=== PATIENT | male | born 1980 | race Caucasian/White ===

== ENCOUNTER 2023-03-09 22:27 | Inpatient (IN) ==
--- NOTE | 2023-03-09 23:04 | DR.ABDMALE ---
HPI Time seen Time Seen by Provider: 03/09/23 23:04 PCP Primary Care Physician: RUSSELL HPI comment HPI Comment: Patient is 42yr old male in er with left lower quardrant pain times two weeks. Got worse this am. Have taken Laxitive and enema without response. History bowel obstruction in the past. Pain is 10/10 and is sharp and associated with nausea and fever. No vomiting or dysuria. Complaint Chief Complaint Doctors Comments: Left lower quardrant abdominal pain times one and half week that is worse today. Chief Complaint:: LLQ PAIN X 2 WEEKS, WORSE THIS AM. PT STATES HX BOWEL RESECTION AND THAT HE TOOK MULTIPLE LAXATIVES THIS AM WITH NO RELIEF. COVID-19 Coronavirus risk:travel/contact w/high risk person: No Has patient experienced Coronavirus symptoms: No Reviewed Nurses Notes Review: Yes Mode of arrival Mode of Arrival: Ambulatory Timing Onset of Chief Complaint: 03/09/23 Severity Severity: None PMH PMH Past Medical History: Yes Past Medical History: Hypertension and CA Past Medical History Comment: CA WITH STENTS Past Surgical History: Yes Surgical History: Angioplasty/Stents, Appendectomy and Bowel Resection Family History History of Family Medical Conditions: No Social History Alcohol Use: None Do you use any recreational Drugs:: No Lives With: Family Lives Where: Assisted Care Travel Risk Coronavirus risk:travel/contact w/high risk person: No Has patient experienced Coronavirus symptoms: No Infectious screening In the last 2 months have you had wt loss of >10#?: NO Have you had fever, night sweats or hemotysis?: No Have you traveled outside the country in the last 6 months?: No Isolation: Standard ROS Review of Systems Constitutional: Fever; negative Weakness or Fatigue Eyes: No Symptoms Reported; negative Blurred Vision ENTM: No Symptoms Reported; negative Nose Discharge or Nose Congestion Respiratoy: No Symptoms Reported; negative Moist Cough or Short of Breath Cardiovascular: No Symptoms Reported; negative Chest Pain Gastrointestinal/Abdominal: Abdominal Pain, Constipation and Nausea; negative Diarrhea or Vomiting Genitourinary: No Symptoms Reported; negative Dysuria Neurological: No Symptoms Reported; negative Headache, Weakness or Dizziness Musculoskeletal: Back Pain; negative Muscle Pain Integumentary: No Symptoms Reported; negative Rash or Juandice Hematologic/Lymphatic: No Symptoms Reported Endocrine: No Symptoms Reported Psychiatric: No Symptoms Reported All Other Systems: Reviewed and Negative PE Vital Signs Vital Signs: Temp Pulse Resp BP Pulse Ox O2 Del Method 03/10/23 01:20 18 03/10/23 00:50 18 03/09/23 22:28 99.2 F 77 18 138/93 96 Room Air General Limitations: No Limitations General Appearance: Alert and In No Apparent Distress Head Head Exam: Normal Inspection Eyes Eye exam: Normal Appearance; negative Scleral Icterus or Conjunctival Injection ENT ENT Exam: Normal Exam and Normal Oropharynx; negative Mucous Membranes Moist or TM's Normal Bilaterally Neck Neck Exam: Normal Inspection and Trachea Midline; negative Tenderness Chest Chest Inspection: Normal Inspection and Symmetric Chest Wall Rise; negative Tenderness Respiratory Respiratory Exam: Normal Lung Sounds Bilat; negative Accessory Muscle Use, Chest Wall Tenderness or Respiratory Distress Respiratory Exam: Bilateral: Rhonchi Cardiovascular Cardiovascular Exam: Regular Rate, Normal Rhythm and Normal Heart Sounds; negative Systolic Murmur or Diastolic Murmur Abdominal Exam Abdominal Exam: Normal Bowel Sounds, Soft and Tenderness Abdominal Tenderness: LLQ and Moderate Rectal Rectal Exam: Deferred Back Back Exam: Normal Inspection; negative (R) CVA Tenderness or (L) CVA Tenderness Extremeties Extremities Exam: Normal Inspection and Normal Capillary Refill Exam: Male: Deferred Neurologic Neurological Exam: Alert and Oriented X3; negative Motor Sensory Deficit Psychiatric Psychiatric Exam: Normal Affect and Normal Mood Skin Skin Exam: Intact MDM Differential Diagnosis Differential Diagnosis: Bowel Obstruction, Constipation, Diverticular disease, Gastroenteritis, Inflammatory BD and Urinary tract infection COURSE Treatment Treatment: See orders done while patient was in er. Labs and CT discussed with patient. HE was given Demerol 25mg IV, Zofran 4mg IV, Flagyl 500mg IVPB and NS one liter IV bolus while in er. he was admitted to hospital for further management. Consultation Consultation Comments: discussed patient with Dr. Alcaraz. He will admit patient. Education/Counseling Education/Counseling: Patient Educated On: Diagnosis ROR Labs Reviewed Laboratory Results Reviewed?: Yes 03/12/23 04:06 03/12/23 04:06 Laboratory: WBC 12.4 X10^3/uL (3.6-10.0) H 03/09/23 23:13 RBC 4.71 X10^6/uL (4.7-6.0) 03/09/23 23:13 Hgb 14.8 g/dL (13.5-18.0) 03/09/23 23:13 Hct 42.2 % (42.0-54.0) 03/09/23 23:13 MCV 89.6 fL (80.0-100.0) 03/09/23 23:13 MCH 31.3 pg (27.0-34.0) 03/09/23 23:13 MCHC 34.9 g/dL (33.0-35.0) 03/09/23 23:13 RDW 12.9 % (11.6-16.5) 03/09/23 23:13 Plt Count 313 X10^3/uL (150.0-450.0) 03/09/23 23:13 MPV 8.3 fL (7.4-11.0) 03/09/23 23:13 Neut % (Auto) 68.6 % (42.0-75.0) 03/09/23 23:13 Lymph % (Auto) 18.8 % (21.0-51.0) L 03/09/23 23:13 [place] % (Auto) 10.1 % (0.0-13.0) 03/09/23 23:13 Eos % (Auto) 1.7 % (0.9-2.9) 03/09/23 23:13 Baso % (Auto) 0.8 % (0.2-1.0) 03/09/23 23:13 Neut # (Auto) 8.5 x10^3/uL (2.2-4.8) H 03/09/23 23:13 Lymph # (Auto) 2.3 X10^3/uL (1.3-2.9) 03/09/23 23:13 [place] # (Auto) 1.3 x10^3/uL (0.3-0.8) H 03/09/23 23:13 Eos # (Auto) 0.2 x10^3/uL (0.0-0.2) 03/09/23 23:13 Baso # (Auto) 0.1 X10^3/uL (0.0-0.1) 03/09/23 23:13 Absolute Nucleated RBC 0.1 /100WBC 03/09/23 23:13 Sodium 139 mmol/L (136-145) 03/09/23 23:13 Corrected Sodium TNP 03/09/23 23:13 Potassium 3.7 mmol/L (3.5-5.1) 03/09/23 23:13 Chloride 102 mmol/L (98-107) 03/09/23 23:13 Carbon Dioxide 28.6 mmol/L (21-32) 03/09/23 23:13 BUN 19 mg/dL (7-18) H 03/09/23 23:13 Creatinine 1.41 mg/dL (0.70-1.30) H 03/09/23 23:13 Est GFR (MDRD) Af Amer > 60 (>60) 03/09/23 23:13 Est GFR (MDRD) Non-Af 58 (>60) L 03/09/23 23:13 Glucose 99 mg/dL (65-99) 03/09/23 23:13 Calcium 8.4 mg/dL (8.5-10.1) L 03/09/23 23:13 Corrected Calcium TNP 03/09/23 23:13 Total Bilirubin 0.50 mg/dL (0.2-1.0) 03/09/23 23:13 AST 16 Units/L (15-37) 03/09/23 23:13 ALT 34 Units/L (12-78) 03/09/23 23:13 Alkaline Phosphatase 66 Units/L (46-116) 03/09/23 23:13 Total Protein 7.1 g/dL (6.4-8.2) 03/09/23 23:13 Albumin 3.8 g/dL (3.4-5.0) 03/09/23 23:13 Globulin 3.3 g/dL (2.5-4.5) 03/09/23 23:13 Albumin/Globulin Ratio 1.2 Ratio (1.1-2.1) 03/09/23 23:13 Amylase 29 Units/L (25-115) 03/09/23 23:13 Specimen Type Clean catch urine 03/09/23 23:57 Urine Color Yellow (YELLOW) 03/09/23 23:57 Urine Appearance Clear (CLEAR) 03/09/23 23:57 Urine pH 6.0 (5.0 - 8.0) 03/09/23 23:57 Ur Specific [place] 1.015 (1.000-1.030) 03/09/23 23:57 Urine Protein Negative (NEGATIVE) 03/09/23 23:57 Urine Glucose (UA) Negative (NEGATIVE) 03/09/23 23:57 Urine Ketones Negative (NEGATIVE) 03/09/23 23:57 Urine Blood Negative (NEGATIVE) 03/09/23 23:57 Urine Nitrite Negative (NEGATIVE) 03/09/23 23:57 Urine Bilirubin Negative (NEGATIVE) 03/09/23 23:57 Urine Urobilinogen Normal (NORMAL) 03/09/23 23:57 Ur Leukocyte Esterase Negative (NEGATIVE) 03/09/23 23:57 XRAY XRAY Interpreted by: Radiologist (Report noted.) Opioid Opioid Risk Tool Age (Homero box if 16-45): Yes History of Preadolescent Sexual Abuse: No Total: 1 Total Score Risk Category: Low Risk Copyright: Julius SAMPSON predicting aberrant behaviors Discharge Plan Diagnosis Discharge Problem: Acute diverticulitis Abdominal pain Qualifiers: Abdominal location: left lower quadrant Qualified Code(s): R10.32 - Left lower quadrant pain Discharge Plan Patient Disposition: ADMITTED INPATIENT Condition: Stable
[2023-03-09 23:26] LABS: MEAN CORPUSCULAR VOLUME 89.6 fL (80.0-100.0); RED CELL DISTRIBUTION WIDTH 12.9 % (11.6-16.5)
[2023-03-09 23:33] LABS: ALANINE AMINOTRANSFERASE 34 Units/L (12-78); ALBUMIN 3.8 g/dL (3.4-5.0); ALKALINE PHOSPHATASE 66 Units/L (46-116); AMYLASE 29 Units/L (25-115); ASPARTATE AMINO TRANSFERASE 16 Units/L (15-37); BLOOD UREA NITROGEN 19 mg/dL (7-18); CALCIUM 8.4 mg/dL (8.5-10.1); CARBON DIOXIDE 28.6 mmol/L (21-32); CHLORIDE 102 mmol/L (98-107); CREATININE 1.41 mg/dL (0.70-1.30); GLUCOSE 99 mg/dL (65-99); POTASSIUM 3.7 mmol/L (3.5-5.1); SODIUM 139 mmol/L (136-145); TOTAL PROTEIN 7.1 g/dL (6.4-8.2); eGFR NON BLACK RACES 58 (>60)
[2023-03-09 23:38] LABS: BASOPHILS # (AUTO) 0.1 X10^3/uL (0.0-0.1); BASOPHILS % (AUTO) 0.8 % (0.2-1.0); EOSINOPHILS # (AUTO) 0.2 x10^3/uL (0.0-0.2); EOSINOPHILS % (AUTO) 1.7 % (0.9-2.9); HEMATOCRIT 42.2 % (42.0-54.0); HEMOGLOBIN 14.8 g/dL (13.5-18.0); LYMPHOCYTES # (AUTO) 2.3 X10^3/uL (1.3-2.9); LYMPHOCYTES % (AUTO) 18.8 % (21.0-51.0); MEAN CORPUSCULAR HEMOGLOBIN 31.3 pg (27.0-34.0); MEAN CORPUSCULAR HGB CONC 34.9 g/dL (33.0-35.0); MEAN PLATELET VOLUME 8.3 fL (7.4-11.0); MONOCYTES # (AUTO) 1.3 x10^3/uL (0.3-0.8); MONOCYTES % (AUTO) 10.1 % (0.0-13.0); NEUTROPHILS # (AUTO) 8.5 x10^3/uL (2.2-4.8); NEUTROPHILS % (AUTO) 68.6 % (42.0-75.0); PLATELET COUNT 313 X10^3/uL (150.0-450.0); RED BLOOD COUNT 4.71 X10^6/uL (4.7-6.0); WHITE BLOOD COUNT 12.4 X10^3/uL (3.6-10.0)
--- NOTE | 2023-03-09 23:51 | CT ---
HISTORYLLQ PAIN X 2 WEEKS, WORSE THIS AM. PT STATES HX BOWEL RESECTION AND THAT HE TOOK MULTIPLE LAXATIVES THIS AM WITH NO RELIEF.STUDYABDOMEN/PELVIS W/O CONCOMPARISONNone.TECHNIQUESerial axial images were obtained from the lung bases to the pubic symphysis without the administration of intravenous contrast. Soft tissue, lung windows and bone window images were interpreted. Dose reduction techniques were utilized.FINDINGSThe heart is not enlarged. There is atherosclerotic disease of the left anterior descending artery, right and left main coronary arteries the lung bases are clear.The liver is normal in size and reveals no focal lesions. There is no intrahepatic biliary ductal dilatation or obvious common bile duct dilatation. The gallbladder is unremarkable. The gallbladder reveals no radiopaque gallstones. The spleen is unremarkable, revealing no focal lesions. The pancreas and adrenal glands are unremarkable.The aorta and inferior vena cava are unremarkable. No significant para-aortic or retroperitoneal lymphadenopathy is identified.The kidneys reveal no renal, ureteric, or urinary bladder calculi. There is no hydronephrosis. There is no obstructive uropathy.Examination of the bowel, greater omentum and mesentery reveals diverticular disease of the sigmoid colon with perisigmoid all inflammatory changes seen within the pelvis extending to the left pelvic sidewall with edema seen in this area. The appendix is unremarkable with no evidence for acute appendicitis. Examination of the pelvis reveals no pathologic masses or fluid collections. There prostate gland calcifications. The urinary bladder is unremarkable. There are pelvic phleboliths. There is a left inguinal hernia with only herniation of fat through the defect.There is vacuum phenomenon within the sacroiliac joints. At L1-2 there is vacuum phenomenon with marked narrowing of the disc space.IMPRESSIONAcute diverticulitis of the sigmoid colon with perisigmoidal inflammatory changes. No perforation or abscess formation is seen at this time.Electronically signed by: Yola Medrano (Mar 09, 2023 23:50:15)
[2023-03-10 00:07] LABS: BILIRUBIN,URINE NEGATIVE (NEGATIVE); BLOOD/HEMOGLOBIN,URINE NEGATIVE (NEGATIVE); GLUCOSE, URINE NEGATIVE (NEGATIVE); KETONES,URINE NEGATIVE (NEGATIVE); LEUKOCYTE ESTERASE ,URINE NEGATIVE (NEGATIVE); NITRITES,URINE NEGATIVE (NEGATIVE); PROTEIN,URINE NEGATIVE (NEGATIVE); UROBILINOGEN,URINE NORMAL (NORMAL)
[2023-03-10 00:20] LABS: APPEARANCE,URINE CLEAR (CLEAR); COLOR,URINE YELLOW (YELLOW)
[2023-03-10] MEDS ORDERED: FLAGYL IV PREMIX 500 MG BAG 500 MG/100 ML BAG IV ONE ×2 (00:20→00:28)
[2023-03-10] MEDS ORDERED: ZOFRAN INJ 4 MG VIAL IVP ONE (00:23)
[2023-03-10] MEDS ORDERED: DEMEROL INJ IVP ONE ×2 (00:23→05:16)
[2023-03-10] MEDS ORDERED: ZOFRAN INJ 4 MG VIAL ONE (00:27)
[2023-03-10] MEDS ORDERED: DEMEROL INJ ONE ×2 (00:27→05:17)
[2023-03-10] MEDS ORDERED: NS 1,000 ML IV 1,000 ML ONE (00:27)
[2023-03-10] MEDS: NS 1,000 ML IV 1,000 ML IV SCH ×4 (00:49→16:50)
[2023-03-10] MEDS ORDERED: DEMEROL INJ IVP PRN (05:36)
[2023-03-10 06:04] VITALS: BMI 31.4
[2023-03-10] MEDS ORDERED: ASPIRIN 81 MG PO SCH (09:00)
[2023-03-10] MEDS ORDERED: COREG TAB 25 MG PO SCH (09:00)
[2023-03-10] MEDS: COZAAR PO SCH (09:28)
[2023-03-10] MEDS: LIPITOR TAB 80 MG PO SCH (09:28)
[2023-03-10] MEDS: PLAVIX PO SCH (09:28)
[2023-03-10] MEDS: ASPIRIN EC 81 MG PO SCH (09:28)
[2023-03-10] MEDS: FLAGYL IV PREMIX 500 MG BAG 500 MG/100 ML BAG IV SCH ×3 (09:29→21:53)
[2023-03-10] MEDS: CIPRO IV 400 MG PREMIX* 400 MG/200 ML IV.SOLN. IV SCH ×2 (09:29→21:09)
[2023-03-10] MEDS: DILAUDID INJ IVP PRN ×4 (11:07→23:25)
--- NOTE | 2023-03-10 13:31 | DR.H&P ---
H&P - History & Physical for Day of: H&P Date: 03/10/23 - Chief Complaint Chief Complaint: ABDOMINAL PAIN - History of Present Illness History of Present Illness: IS A 42 YEAR OLD WHITE MALE. HE PRESENTED TO THE ER WITH COMPLAINTS OF LEFT LOWER QUADRANTS PAIN. PAIN STARTED ABOUT TWO WEEKS AGO AND HAS PROGRESSIVELY GOTTEN WORSE. HE ADMITS TO TAKING A LAXATIVE AND ENEMA WITHOUT RESPONSE. HE ADMITS TO A HISTORY OF BOWEL OBSTRUCTION IN THE PAST, WHICH REQUIRED A BOWEL RESECTION. HE ADMITS TO NAUSEA AND FEVER, BUT NO VOMITING OR DYSURIA. HE DESCRIBES PAIN SHARP AND RATES IT A 10/10. PMH INCLUDES HTN, OK, CAD, DYSLIPIDEMIA, CARDIAC STENTS, APPENDECTOMY, BOWEL RESECTION. ON ARRIVAL TO THE HOSPITAL, HIS VITALS WERE: 99.2-77-18-96%-138/93. LABS WERE OBTAINED. WBC 12.4, RBC 4.71, HGB 14.8, HCT 42.2, PLT COUNT 313, SODIUM 139, POTASSIUM 3.7, CHLORIDE 102, CARBON DIOXIDE 28.6, BUN 19, CREATININE 1.41, GLUCOSE 99, CALCIUM 8.4, TOTAL BILI 0.50, AST 16, ALT 34, ALK PHOS 66, TOTAL PROTEIN 7.1, ALBUMIN 3.8. URINALYSIS WAS OBTAINED AND WAS UNREMARKABLE. ABDOMEN/PELVIS CT WITHOUT CONTRAST WAS OBTAINED AND REVEALED: Acute diverticulitis of the sigmoid colon with perisigmoidal inflammatory changes. No perforation or abscess formation is seen at this time. IN THE ER, HE WAS GIVEN FLAGYL 500MG IV X 1 DOSE, DEMEROL 25MG IV X 2 DOSES, ZOFRAN 4MG IV X 1 DOSE. PATIENT WAS ADMITTED TO THE HOSPTIAL INPATIENT STATUS FOR FURTHER EVALUATION AND TREATMENT OF ACUTE DIVERTICULITIS, ABDOMINAL PAIN. HE WAS STARTED ON NORMAL SALINE AT 125 ML/HR, FLAGYL 500MG IV Q6H, CIPRO 400MG IV Q12H, DILAUDID 2MG IV Q4H PRN, ZOFRAN 4MG IV Q6H. HIS HOME MEDICATIONS OF ECOTRIN, LIPITOR, PLAVIX, COZAAR, AND COREG WERE RESUMED. WE DID DECREASE THE DOSE OF THE COREG TO 12.5MG BID. WE WILL CONSULT , GENERAL SURGEON, TO EVALUATE PATIENT. OTHERWISE, WE WILL FOLLOW UP WITH AM LABS AND CONTINUE TO MONITOR. TIME SPENT ON CLINICAL ASSESSMENT, REVIEWING LABS AND IMAGING, DECISION MAKING, AND DOCUMENTATION GREATER THAN 75 MINUTES. - Past Medical History Past Medical History: OK, Hypertension - Past Surgical History Surgical History: Angioplasty/Stents, Appendectomy, Bowel Resection - Family History Family Medical History: Coronary Artery Disease, Hypertension - Social History Does any household member use tobacco: No Alcohol Use: None Drug Use: None - Review of Systems Constitutional: Fever Eyes: No Symptoms Reported ENT: No Symptoms Reported Respiratory: No Symptoms Reported Cardiovascular: No Symptoms Reported Gastrointestinal: See HPI, Nausea, Abdominal Pain. denies: Vomiting, Diarrhea, Constipation Genitourinary: No Symptoms Reported Musculoskeletal: No Symptoms Reported Skin: No Symptoms Reported Neurological: No Symptoms Reported - Physical Exam Vital Signs: Vital Signs Temperature 98.2 F Pulse Rate 71 Pulse Rate 63 Pulse Rate 73 Pulse Rate 51 Pulse Rate 47 Pulse Rate 70 Pulse Rate 58 Pulse Rate 61 Pulse Rate 57 Pulse Rate 65 Respiratory Rate 17 Respiratory Rate 18 Respiratory Rate 15 Respiratory Rate 18 Respiratory Rate 16 Respiratory Rate 14 Respiratory Rate 19 Respiratory Rate 18 Respiratory Rate 16 Respiratory Rate 18 Respiratory Rate 18 Respiratory Rate 20 Respiratory Rate 18 Respiratory Rate 20 Blood Pressure 159/88 Blood Pressure 150/96 Blood Pressure 157/95 O2 Sat by Pulse Oximetry 94 O2 Sat by Pulse Oximetry 93 O2 Sat by Pulse Oximetry 95 O2 Sat by Pulse Oximetry 95 O2 Sat by Pulse Oximetry 94 O2 Sat by Pulse Oximetry 96 O2 Sat by Pulse Oximetry 97 O2 Sat by Pulse Oximetry 95 O2 Sat by Pulse Oximetry 96 O2 Sat by Pulse Oximetry 96 Oriented: Normal Eyes: Normal Ear: Normal Nose: Normal Throat: Normal Respiratory: Clear Throughout Cardiovascular: Normal : Normal Auscultation: Bowel Sounds: Normal Palpation: Normal Tenderness: LLQ, Severe Skin: Normal Musculoskeletal: Normal Psychiatric: Normal Mood Description: Calm Affect: Normal Speech Pattern: Clear - Assessment/Plan (1) Acute diverticulitis Status: Acute Plan: ADMIT, CONSULT SURGERY, NORMAL SALINE AT 125 ML/HR, FLAGYL 500MG IV Q6H, CIPRO 400MG IV Q12H, DILAUDID 2MG IV Q4H PRN, ZOFRAN 4MG IV Q6H, RESUME HOME MEDS (2) Abdominal pain Qualifiers: Abdominal location: left lower quadrant Qualified Code(s): R10.32 - Left lower quadrant pain Status: Acute (3) HTN (hypertension) Qualifiers: Hypertension type: primary hypertension Qualified Code(s): I10 - Essential (primary) hypertension Status: Chronic Plan: RESUME COZAAR AND COREG (4) CAD (coronary artery disease) Qualifiers: Coronary Disease-Associated Artery/Lesion type: [place] artery [place] vs. transplanted heart: [place] heart Associated angina: unspecified whether angina present Qualified Code(s): I25.10 - Atherosclerotic heart disease of [place] coronary artery without angina pectoris Status: Chronic Plan: RESUME ASPIRIN AND PLAVIX (5) Dyslipidemia Status: Chronic Plan: RESUME LIPITOR - Allergies Allergies/Adverse Reactions: Allergies Allergy/AdvReac Type Severity Reaction Status Date / Time Penicillins Allergy Verified 03/09/23 22:40 Sulfa (Sulfonamide Allergy Verified 03/09/23 22:40 Antibiotics) [SULFA] - Medications Home Medications: Home Medications Medication Instructions Recorded Confirmed amlodipine 10 mg tablet 10 mg PO QDAY 03/09/23 03/09/23 aspirin 81 mg capsule,delayed 81 mg PO DAILY 03/09/23 03/09/23 release atorvastatin 80 mg tablet 80 mg PO QDAY 03/09/23 03/09/23 carvedilol 25 mg tablet (Coreg) 25 mg PO BID 03/09/23 03/09/23 clopidogrel 75 mg tablet (Plavix) 75 mg PO DAILY 03/09/23 03/09/23 hydrocodone 10 mg-acetaminophen 1 tab PO BID PRN 03/09/23 03/09/23 325 mg tablet losartan 100 mg tablet 100 mg PO DAILY 03/09/23 03/09/23
[2023-03-10 15:23] LABS: BASOPHILS % (AUTO) 0.5 % (0.2-1.0); EOSINOPHILS # (AUTO) 0.3 x10^3/uL (0.0-0.2); EOSINOPHILS % (AUTO) 3.1 % (0.9-2.9); HEMOGLOBIN 14.7 g/dL (13.5-18.0); LYMPHOCYTES # (AUTO) 2.8 X10^3/uL (1.3-2.9); LYMPHOCYTES % (AUTO) 30.4 % (21.0-51.0); MEAN CORPUSCULAR HEMOGLOBIN 30.9 pg (27.0-34.0); MEAN CORPUSCULAR HGB CONC 34.2 g/dL (33.0-35.0); MEAN CORPUSCULAR VOLUME 90.5 fL (80.0-100.0); MEAN PLATELET VOLUME 8.1 fL (7.4-11.0); MONOCYTES # (AUTO) 0.9 x10^3/uL (0.3-0.8); MONOCYTES % (AUTO) 9.9 % (0.0-13.0); NEUTROPHILS # (AUTO) 5.2 x10^3/uL (2.2-4.8); NEUTROPHILS % (AUTO) 56.1 % (42.0-75.0); PLATELET COUNT 304 X10^3/uL (150.0-450.0); RED BLOOD COUNT 4.75 X10^6/uL (4.7-6.0); RED CELL DISTRIBUTION WIDTH 12.7 % (11.6-16.5); WHITE BLOOD COUNT 9.2 X10^3/uL (3.6-10.0)
[2023-03-10 15:29] LABS: ALANINE AMINOTRANSFERASE 29 Units/L (12-78); ALBUMIN 3.5 g/dL (3.4-5.0); ALKALINE PHOSPHATASE 66 Units/L (46-116); ASPARTATE AMINO TRANSFERASE 14 Units/L (15-37); BLOOD UREA NITROGEN 12 mg/dL (7-18); CALCIUM 8.2 mg/dL (8.5-10.1); CARBON DIOXIDE 32.4 mmol/L (21-32); CHLORIDE 103 mmol/L (98-107); COR NA(FOR HYPERGLY) 140 mmol/L (136-145); CREATININE 1.34 mg/dL (0.70-1.30); GLUCOSE 112 mg/dL (65-99); POTASSIUM 3.6 mmol/L (3.5-5.1); SODIUM 140 mmol/L (136-145); TOTAL PROTEIN 6.8 g/dL (6.4-8.2); eGFR NON BLACK RACES > 60 (>60)
[2023-03-10] MEDS ORDERED: CONSULT PHARMACY - POTASSIUM & MAGNESIUM XX SCH (16:00)
[2023-03-10] MEDS: ZOFRAN INJ 4 MG VIAL IVP PRN (18:11)
[2023-03-10] MEDS: MAGNESIUM SULFATE 1 GRAM/100 mL PREMIX 1 G/100 ML BAG IV SCH ×2 (22:35→23:37)
[2023-03-11] MEDS: K-RIDER 10 MEQ/NS 100 ML 10 MEQ/100 ML BAG IV SCH ×2 (00:47→02:04)
[2023-03-11] MEDS: NS 1,000 ML IV 1,000 ML IV SCH ×3 (01:44→18:45)
[2023-03-11] MEDS: FLAGYL IV PREMIX 500 MG BAG 500 MG/100 ML BAG IV SCH ×4 (03:06→20:41)
[2023-03-11 05:08] LABS: BASOPHILS % (AUTO) 0.4 % (0.2-1.0); EOSINOPHILS # (AUTO) 0.1 x10^3/uL (0.0-0.2); EOSINOPHILS % (AUTO) 0.8 % (0.9-2.9); HEMATOCRIT 42.7 % (42.0-54.0); HEMOGLOBIN 14.9 g/dL (13.5-18.0); LYMPHOCYTES # (AUTO) 1.3 X10^3/uL (1.3-2.9); LYMPHOCYTES % (AUTO) 14.1 % (21.0-51.0); MEAN CORPUSCULAR HEMOGLOBIN 31.3 pg (27.0-34.0); MEAN CORPUSCULAR VOLUME 89.5 fL (80.0-100.0); MEAN PLATELET VOLUME 8.3 fL (7.4-11.0); MONOCYTES # (AUTO) 0.7 x10^3/uL (0.3-0.8); MONOCYTES % (AUTO) 7.8 % (0.0-13.0); NEUTROPHILS # (AUTO) 7.2 x10^3/uL (2.2-4.8); NEUTROPHILS % (AUTO) 76.9 % (42.0-75.0); PLATELET COUNT 314 X10^3/uL (150.0-450.0); RED BLOOD COUNT 4.77 X10^6/uL (4.7-6.0); RED CELL DISTRIBUTION WIDTH 12.6 % (11.6-16.5); WHITE BLOOD COUNT 9.4 X10^3/uL (3.6-10.0)
[2023-03-11 05:20] LABS: ALANINE AMINOTRANSFERASE 33 Units/L (12-78); ALBUMIN 3.8 g/dL (3.4-5.0); ALKALINE PHOSPHATASE 66 Units/L (46-116); ASPARTATE AMINO TRANSFERASE 21 Units/L (15-37); BLOOD UREA NITROGEN 10 mg/dL (7-18); CALCIUM 8.5 mg/dL (8.5-10.1); CHLORIDE 100 mmol/L (98-107); COR NA(FOR HYPERGLY) 139 mmol/L (136-145); CREATININE 1.19 mg/dL (0.70-1.30); GLUCOSE 113 mg/dL (65-99); MAGNESIUM 2.3 mg/dL (2.0-2.9); POTASSIUM 4.1 mmol/L (3.5-5.1); SODIUM 139 mmol/L (136-145); TOTAL PROTEIN 7.3 g/dL (6.4-8.2); eGFR NON BLACK RACES > 60 (>60)
--- NOTE | 2023-03-11 05:52 | RAD ---
HISTORYABDOMINAL PAIN, ACUTE DIVERTICULITISSTUDYKUBCOMPARISONNone .br.br.br gas pattern. No pathological soft tissue mass or calcification can be observed. The bony structures are grossly intact.IMPRESSIONNo evidence for acute abdominal pathology identified.Electronically signed by: OMID MARCELINO (Mar 11, 2023 05:44:54)
[2023-03-11] MEDS: ASPIRIN EC 81 MG PO SCH (08:37)
[2023-03-11] MEDS: LIPITOR TAB 80 MG PO SCH (08:37)
[2023-03-11] MEDS: PLAVIX PO SCH (08:56)
[2023-03-11] MEDS: COZAAR PO SCH (08:57)
[2023-03-11] MEDS: COREG TAB 12.5 MG PO SCH ×2 (08:57→20:41)
[2023-03-11] MEDS: CIPRO IV 400 MG PREMIX* 400 MG/200 ML IV.SOLN. IV SCH ×2 (08:57→21:52)
[2023-03-11] MEDS: DILAUDID INJ IVP PRN ×2 (08:58→19:46)
[2023-03-11] MEDS: TORADOL 30 MG VIAL IVP PRN ×2 (13:28→23:36)
[2023-03-12] MEDS: NS 1,000 ML IV 1,000 ML IV SCH ×3 (01:00→09:38)
[2023-03-12] MEDS: FLAGYL IV PREMIX 500 MG BAG 500 MG/100 ML BAG IV SCH ×2 (02:00→11:25)
[2023-03-12 05:03] LABS: BASOPHILS % (AUTO) 0.5 % (0.2-1.0); EOSINOPHILS # (AUTO) 0.2 x10^3/uL (0.0-0.2); EOSINOPHILS % (AUTO) 2.6 % (0.9-2.9); HEMATOCRIT 40.8 % (42.0-54.0); HEMOGLOBIN 14.1 g/dL (13.5-18.0); LYMPHOCYTES # (AUTO) 2.5 X10^3/uL (1.3-2.9); LYMPHOCYTES % (AUTO) 32.1 % (21.0-51.0); MEAN CORPUSCULAR HEMOGLOBIN 31.1 pg (27.0-34.0); MEAN CORPUSCULAR HGB CONC 34.5 g/dL (33.0-35.0); MEAN PLATELET VOLUME 8.4 fL (7.4-11.0); MONOCYTES # (AUTO) 0.7 x10^3/uL (0.3-0.8); NEUTROPHILS # (AUTO) 4.3 x10^3/uL (2.2-4.8); NEUTROPHILS % (AUTO) 55.8 % (42.0-75.0); PLATELET COUNT 304 X10^3/uL (150.0-450.0); RED BLOOD COUNT 4.53 X10^6/uL (4.7-6.0); RED CELL DISTRIBUTION WIDTH 13.1 % (11.6-16.5); WHITE BLOOD COUNT 7.8 X10^3/uL (3.6-10.0)
[2023-03-12 05:15] LABS: ALANINE AMINOTRANSFERASE 49 Units/L (12-78); ALBUMIN 3.2 g/dL (3.4-5.0); ALKALINE PHOSPHATASE 56 Units/L (46-116); ASPARTATE AMINO TRANSFERASE 35 Units/L (15-37); BLOOD UREA NITROGEN 13 mg/dL (7-18); CARBON DIOXIDE 29.8 mmol/L (21-32); CHLORIDE 105 mmol/L (98-107); COR CA(FOR HYPOALB) 8.6 mg/dL (8.5-10.1); COR NA(FOR HYPERGLY) 140 mmol/L (136-145); CREATININE 1.15 mg/dL (0.70-1.30); GLUCOSE 112 mg/dL (65-99); POTASSIUM 3.6 mmol/L (3.5-5.1); SODIUM 140 mmol/L (136-145); TOTAL PROTEIN 6.3 g/dL (6.4-8.2); eGFR NON BLACK RACES > 60 (>60)
--- NOTE | 2023-03-12 06:06 | RAD ---
HISTORYABDOMINAL PAIN, [id number]/30/20 23FINDINGSEvaluation of the abdomen demonstrates a normal bowel gas pattern. No pathological soft tissue mass or calcification can be observed. The bony structures are grossly intact.IMPRESSIONNo evidence for acute abdominal pathology identified.Electronically signed by: OMID MARCELINO (Mar 12, 2023 06:05:23)
[2023-03-12] MEDS ORDERED: CONSULT PHARMACY - POTASSIUM & MAGNESIUM XX SCH (07:00)
[2023-03-12] MEDS ORDERED: NS 100 ML IV 100 ML ONE (07:32)
[2023-03-12] MEDS ORDERED: OMNIPAQUE 350 mg/mL 100 mL BTL 100 ML ONE (07:32)
[2023-03-12] MEDS ORDERED: READI-CAT 2 ONE (07:33)
[2023-03-12] MEDS: TORADOL 30 MG VIAL IVP PRN (07:36)
--- NOTE | 2023-03-12 07:57 | DR.PROGNOT ---
HOSPITAL PROGRESS NOTE Progress Note for Day of: Progress Note Date: 03/12/23 Chief Complaint Chief Complaint: more LLQ pain , no nausea or vomiting .. no BM . WBC 7.8.. normal BUN, Creat , LFT . temp 98.. Past Medical Family Social History Allergies: Allergies Penicillins Allergy (Verified 03/09/23 22:40) Sulfa (Sulfonamide Antibiotics) [SULFA] Allergy (Verified 03/09/23 22:40) Review Of Systems ROS: No change since H&P Vital Signs Vital Signs: Vital Signs Temperature 98.5 F Temperature 98.6 F Pulse Rate 55 Pulse Rate 65 Respiratory Rate 18 Respiratory Rate 18 Blood Pressure 149/77 Blood Pressure 152/87 O2 Sat by Pulse Oximetry 96 O2 Sat by Pulse Oximetry 95 Physical Exam Oriented: Normal Eyes: Normal Ear: Normal Nose: Normal Throat: Normal Cardiovascular: Normal : Normal GI:Auscultation: Normal GI:Palpation: Normal GI: Tenderness: Other (Soft flat abdomen with moderate to severe left lower quadrant tenderness, mild rebound.) Skin: Normal Musculoskeletal: Normal Psychiatric: Normal Mood Description: Calm Affect: Normal Speech Pattern: Clear and Appropriate Laboratory and Diagnostics 03/12/23 04:06 03/12/23 04:06 Labs: Laboratory WBC 7.8 X10^3/uL (3.6-10.0) 03/12/23 04:06 RBC 4.53 X10^6/uL (4.7-6.0) L 03/12/23 04:06 Hgb 14.1 g/dL (13.5-18.0) 03/12/23 04:06 Hct 40.8 % (42.0-54.0) L 03/12/23 04:06 MCV 90.0 fL (80.0-100.0) 03/12/23 04:06 MCH 31.1 pg (27.0-34.0) 03/12/23 04:06 MCHC 34.5 g/dL (33.0-35.0) 03/12/23 04:06 RDW 13.1 % (11.6-16.5) 03/12/23 04:06 Plt Count 304 X10^3/uL (150.0-450.0) 03/12/23 04:06 MPV 8.4 fL (7.4-11.0) 03/12/23 04:06 Neut % (Auto) 55.8 % (42.0-75.0) 03/12/23 04:06 Lymph % (Auto) 32.1 % (21.0-51.0) 03/12/23 04:06 [place] % (Auto) 9.0 % (0.0-13.0) 03/12/23 04:06 Eos % (Auto) 2.6 % (0.9-2.9) 03/12/23 04:06 Baso % (Auto) 0.5 % (0.2-1.0) 03/12/23 04:06 Neut # (Auto) 4.3 x10^3/uL (2.2-4.8) 03/12/23 04:06 Lymph # (Auto) 2.5 X10^3/uL (1.3-2.9) 03/12/23 04:06 [place] # (Auto) 0.7 x10^3/uL (0.3-0.8) 03/12/23 04:06 Eos # (Auto) 0.2 x10^3/uL (0.0-0.2) 03/12/23 04:06 Baso # (Auto) 0.0 X10^3/uL (0.0-0.1) 03/12/23 04:06 Absolute Nucleated RBC 0.0 /100WBC 03/12/23 04:06 Sodium 140 mmol/L (136-145) 03/12/23 04:06 Corrected Sodium 140 mmol/L (136-145) 03/12/23 04:06 Potassium 3.6 mmol/L (3.5-5.1) 03/12/23 04:06 Chloride 105 mmol/L (98-107) 03/12/23 04:06 Carbon Dioxide 29.8 mmol/L (21-32) 03/12/23 04:06 BUN 13 mg/dL (7-18) 03/12/23 04:06 Creatinine 1.15 mg/dL (0.70-1.30) 03/12/23 04:06 Est GFR (MDRD) Af Amer > 60 (>60) 03/12/23 04:06 Est GFR (MDRD) Non-Af > 60 (>60) 03/12/23 04:06 Glucose 112 mg/dL (65-99) H 03/12/23 04:06 Calcium 8.0 mg/dL (8.5-10.1) L 03/12/23 04:06 Corrected Calcium 8.6 mg/dL (8.5-10.1) 03/12/23 04:06 Magnesium 1.7 mg/dL (2.0-2.9) L 03/12/23 04:06 Total Bilirubin 0.30 mg/dL (0.2-1.0) 03/12/23 04:06 AST 35 Units/L (15-37) 03/12/23 04:06 ALT 49 Units/L (12-78) 03/12/23 04:06 Alkaline Phosphatase 56 Units/L (46-116) 03/12/23 04:06 Total Protein 6.3 g/dL (6.4-8.2) L 03/12/23 04:06 Albumin 3.2 g/dL (3.4-5.0) L 03/12/23 04:06 Globulin 3.1 g/dL (2.5-4.5) 03/12/23 04:06 Albumin/Globulin Ratio 1.0 Ratio (1.1-2.1) L 03/12/23 04:06 Amylase 29 Units/L (25-115) 03/09/23 23:13 Specimen Type Clean catch urine 03/09/23 23:57 Urine Color Yellow (YELLOW) 03/09/23 23:57 Urine Appearance Clear (CLEAR) 03/09/23 23:57 Urine pH 6.0 (5.0 - 8.0) 03/09/23 23:57 Ur Specific [place] 1.015 (1.000-1.030) 03/09/23 23:57 Urine Protein Negative (NEGATIVE) 03/09/23 23:57 Urine Glucose (UA) Negative (NEGATIVE) 03/09/23 23:57 Urine Ketones Negative (NEGATIVE) 03/09/23 23:57 Urine Blood Negative (NEGATIVE) 03/09/23 23:57 Urine Nitrite Negative (NEGATIVE) 03/09/23 23:57 Urine Bilirubin Negative (NEGATIVE) 03/09/23 23:57 Urine Urobilinogen Normal (NORMAL) 03/09/23 23:57 Ur Leukocyte Esterase Negative (NEGATIVE) 08/28/23 23:57 Assessment and Plan 1: Acute sigmoid diverticulitis. To repeat abdominal and pelvic CT scan this morning.l Problem Patient Problems: Patient Problems Acute diverticulitis (Acute) K57.92 Abdominal pain (Acute) R10.9 HTN (hypertension) (Chronic) I10 CAD (coronary artery disease) (Chronic) I25.10 Dyslipidemia (Chronic) E78.5
[2023-03-12] MEDS ORDERED: K-DUR TAB 20 MEQ PO ONE (09:00)
[2023-03-12] MEDS: CIPRO IV 400 MG PREMIX* 400 MG/200 ML IV.SOLN. IV SCH (09:20)
[2023-03-12 09:25] VITALS: RESP 20
[2023-03-12] MEDS: DILAUDID INJ IVP PRN ×2 (09:25→14:13)
[2023-03-12] MEDS: ZOFRAN INJ 4 MG VIAL IVP PRN (09:30)
[2023-03-12] MEDS: PLAVIX PO SCH (09:56)
[2023-03-12] MEDS: ASPIRIN EC 81 MG PO SCH ×2 (09:56→10:07)
[2023-03-12] MEDS: COREG TAB 12.5 MG PO SCH (09:56)
[2023-03-12] MEDS: LIPITOR TAB 80 MG PO SCH ×2 (09:56→10:07)
[2023-03-12] MEDS: COZAAR PO SCH (09:56)
[2023-03-12] MEDS: MAG-OX TAB PO SCH ×2 (10:02→11:25)
--- NOTE | 2023-03-12 10:10 | CT ---
HISTORYABD PAIN.STUDYABDOMEN/PELVIS WITH CONCOMPARISONCT abdomen and pelvis 03/09/2023TECHNIQUEMultiple CT axial images of the abdomen and pelvis were obtained with IV contrast. Coronal and sagittal images were reconstructed. Dose reduction techniques included Automated Exposure Control (AEC) and adjustment of mA and kV.FINDINGSThe findings of acute diverticulitis have improved. There is less pericolonic edema. Minimal wall thickening still remains and some of this could be due to the muscle hypertrophy of diverticulosis which is present. But there is no evidence for abscess or bowel perforation.The lung bases are clear. Heart size is normal. Atherosclerotic calcification is present in the coronary arteries.The liver is normal in size and configuration. The gallbladder has no inflammation around it. The spleen is normal in size and shape.The adrenal glands are normal. The pancreas is normal.Renal enhancement is symmetric with no solid mass. There is no hydronephrosis or significant perirenal edema. The bladder is minimally distended. It has no wall thickening or perivesical edema.The bowel is not dilated. There is no wall thickening in the proximal bowel or edema around the proximal bowel.Minimal degenerative changes are present in the spine.IMPRESSION1. Improved uncomplicated sigmoid diverticulitisElectronically signed by: Blayne Chambers (Mar 12, 2023 10:08:34)
[2023-03-12 10:37] VITALS: TEMP 97.5; O2SAT 94
[2023-03-12] MEDS ORDERED: NORVASC TAB 10 MG PO SCH (12:00)
[2023-03-12 14:30] VITALS: BP 151/98; PULSE 65
[2023-03-12] MEDS ORDERED: LIPITOR TAB 80 MG PO SCH (21:00)
[2023-03-12] MEDS ORDERED: ASPIRIN EC 81 MG PO SCH (21:00)
[2023-03-12] MEDS ORDERED: MAG-OX TAB PO SCH (21:00)
== END 2023-03-12 15:33 | disposition home or self-care (01) | DRG 392 ==
LOC: ICU 22:27 → ER 22:27 → OBSVTOIN 03-10 05:13 → ICU 03-10 05:46
PROVIDERS: ADMIT Internal Medicine; ATTEND Internal Medicine

== ENCOUNTER 2023-09-23 15:13 | Observation (INO) ==
--- NOTE | 2023-09-23 15:32 | DR.RPMALE ---
Rectal pain, Male PCP Primary Care Physician: MOLINA Cm Chief Complaint:: PT STATES HE HAS HAD SOME RECTAL BLEEDING SINCE THURSDAY. STATES HE HAD THE STOMACH VIRUS THAT WAS GOING AROUND A FEW WEEKS AGO AND ABOUT 2 DAYS AGO HE STARTED WITH THE RECTAL BLEEDING. HE HAS BEEN TO THE ER IN [place], WELL HIS PRIMARY DOCTOR THIS MORNING. SHE GAVE HIM CREAM FOR THE AREA BUT HE HAS NOT TRIED IT YET HE STATES. Chief Complaint Doctors Comments: 43 y/o presents for evaluation. Patient had diarrhea last week, resolved. Then spiked a fever, was having some lower abdominal discomfort, took leftover antibiotics for diverticulitis, started that 5 days ago. 2 days ago patient started having bright red blood with bowel movements. Worsened yesterday. Has had several episodes of bright red blood with clots in the toilet, very little stool. Went to another ER last p.m., told it was probably internal hemorrhoids. Saw his primary care provider today, was prescribed a cream. Patient believes had hemorrhoids in the past, but that generally Spotts polyp blood. Patient is having large amounts of blood with episodes. Not feeling lightheaded, does feel a little off. Now having some discomfort across lower abdomen. No current fever, chills, URI symptoms. No urinary issues. Patient been treated for diverticulitis in the past, was last hospitalized back in March. He did see Dr. Winston in consult following his hospitalization. Colonoscopy was planned for May, but patient did not get around to it. Patient does take aspirin and Plavix for cardiac stents. Reviewed Nurses Notes Review: Yes Source History Provided: Patient Mode of Arrival Mode of Arrival: Ambulatory PMH PMH Past Medical History: Yes Past Medical History: Hypertension and [place] Past Surgical History: Yes Surgical History: Angioplasty/Stents, Appendectomy and Bowel Resection Family History History of Family Medical Conditions: Yes Family Medical History: Coronary Artery Disease and Hypertension Social History Does any household member use tobacco: No Alcohol Use: Rarely Do you use any recreational Drugs:: No Lives With: Family Lives Where: Home Travel Risk Coronavirus risk:travel/contact w/high risk person: No Has patient experienced Coronavirus symptoms: No Infectious screening In the last 2 months have you had wt loss of >10#?: NO Have you had fever, night sweats or hemotysis?: No Have you traveled outside the country in the last 6 months?: No Isolation: Standard ROS Review of Systems Constitutional: No Symptoms Reported Eyes: No Symptoms Reported ENTM: No Symptoms Reported Respiratoy: No Symptoms Reported Cardiovascular: No Symptoms Reported Gastrointestinal/Abdominal: See HPI Genitourinary: No Symptoms Reported Neurological: No Symptoms Reported Musculoskeletal: No Symptoms Reported Integumentary: No Symptoms Reported Hematologic/Lymphatic: See HPI All Other Systems: Reviewed and Negative PE, MALE Vital Signs Vitals: Vital Signs Temperature 97.9 F Pulse Rate 77 Respiratory Rate 20 Blood Pressure 139/91 O2 Sat by Pulse Oximetry 98 General General Appearance: Alert and In No Apparent Distress Eyes Eye exam: PERRL and EOMI ENT ENT Exam: Normal Oropharynx and Mucous Membranes Moist Neck Neck Exam: Normal Inspection Respiratory Respiratory Exam: Normal Lung Sounds Bilat; negative Accessory Muscle Use or Respiratory Distress Cardiovascular Cardiovascular Exam: Regular Rate, Normal Rhythm and Normal Heart Sounds Abdominal Exam Abdominal Exam: Normal Bowel Sounds, Soft and Tenderness (RLQ > LLQ, no guarding or rebound. ) Extremities Extremities Exam: Normal Inspection; negative Edema Back Back Exam: Normal Inspection Neurologic Neurological Exam: Alert, Oriented X3 and CN II-XII Intact; negative Motor Sensory Deficit Skin Skin Exam: Warm and Dry COURSE Treatment Treatment: 43-year-old male with rectal bleeding for the past 2 days, significantly more than usual. Workup initiated. Patient given IV fluids. Patient likely having a bleeding diverticulum, was treated for diverticulitis within the past year. Was supposed to have colonoscopy with Dr. Luu few months ago, will consult with him. [id number] -Dr. Luu came and evaluated the patient. He recommends admission for the patient, and will scope in the a.m.. Discussed with Dr. Sykes, on-call for Dr. Alcaraz, accepts the admission..would like a CT abd/pelvis. Performed with IV contrast -has diverticulosis, but no signs of diverticulitis or abscess formation. ROR Labs Reviewed Laboratory Results Reviewed?: Yes 09/23/23 16:04 09/23/23 16:04 Laboratory: WBC 8.9 X10^3/uL (3.6-10.0) 09/23/23 16:04 RBC 4.97 X10^6/uL (4.7-6.0) 09/23/23 16:04 Hgb 15.5 g/dL (13.5-18.0) 09/23/23 16:04 Hct 45.4 % (42.0-54.0) 09/23/23 16:04 MCV 91.3 fL (80.0-100.0) 09/23/23 16:04 MCH 31.2 pg (27.0-34.0) 09/23/23 16:04 MCHC 34.1 g/dL (33.0-35.0) 09/23/23 16:04 RDW 13.2 % (11.6-16.5) 09/23/23 16:04 Plt Count 332 X10^3/uL (150.0-450.0) 09/23/23 16:04 MPV 7.5 fL (7.4-11.0) 09/23/23 16:04 Neut % (Auto) 61.9 % (42.0-75.0) 09/23/23 16:04 Lymph % (Auto) 27.2 % (21.0-51.0) 09/23/23 16:04 [place] % (Auto) 7.5 % (0.0-13.0) 09/23/23 16:04 Eos % (Auto) 2.4 % (0.9-2.9) 09/23/23 16:04 Baso % (Auto) 1.0 % (0.2-1.0) 09/23/23 16:04 Neut # (Auto) 5.5 x10^3/uL (2.2-4.8) H 09/23/23 16:04 Lymph # (Auto) 2.4 X10^3/uL (1.3-2.9) 09/23/23 16:04 [place] # (Auto) 0.7 x10^3/uL (0.3-0.8) 09/23/23 16:04 Eos # (Auto) 0.2 x10^3/uL (0.0-0.2) 09/23/23 16:04 Baso # (Auto) 0.1 X10^3/uL (0.0-0.1) 09/23/23 16:04 Absolute Nucleated RBC 0.1 /100WBC 09/23/23 16:04 PT 12.8 SECONDS (11.8-14.3) 09/23/23 16:04 INR Target Range - 09/23/23 16:04 INR 0.98 (0.8-1.3) 09/23/23 16:04 APTT 27.3 SECONDS (22.9-36.5) 09/23/23 16:04 PTT Comment - 09/23/23 16:04 Sodium 142 mmol/L (136-145) 09/23/23 16:04 Corrected Sodium 143 mmol/L (136-145) 09/23/23 16:04 Potassium 4.0 mmol/L (3.5-5.1) 09/23/23 16:04 Chloride 105 mmol/L (98-107) 09/23/23 16:04 Carbon Dioxide 28.1 mmol/L (21-32) 09/23/23 16:04 BUN 11 mg/dL (7-18) 09/23/23 16:04 Creatinine 1.03 mg/dL (0.70-1.30) 09/23/23 16:04 Est GFR (MDRD) Af Amer > 60 (>60) 09/23/23 16:04 Est GFR (MDRD) Non-Af > 60 (>60) 09/23/23 16:04 Glucose 149 mg/dL (65-99) H 09/23/23 16:04 Calcium 8.0 mg/dL (8.5-10.1) L 09/23/23 16:04 Corrected Calcium 8.8 mg/dL (8.5-10.1) 09/23/23 16:04 Total Bilirubin 0.30 mg/dL (0.2-1.0) 09/23/23 16:04 AST 16 Units/L (15-37) 09/23/23 16:04 ALT 61 Units/L (12-78) 09/23/23 16:04 Alkaline Phosphatase 65 Units/L (46-116) 09/23/23 16:04 Total Protein 6.2 g/dL (6.4-8.2) L 09/23/23 16:04 Albumin 3.0 g/dL (3.4-5.0) L 09/23/23 16:04 Globulin 3.2 g/dL (2.5-4.5) 09/23/23 16:04 Albumin/Globulin Ratio 0.9 Ratio (1.1-2.1) L 09/23/23 16:04 Lipase 28 Units/L (16-77) 09/23/23 16:04 Labs acceptable Opioid Opioid Risk Tool Age (Homero box if 16-45): Yes History of Preadolescent Sexual Abuse: No Total: 1 Total Score Risk Category: Low Risk Copyright: Julius SAMPSON predicting aberrant behaviors Discharge Plan Diagnosis Discharge Problem: Acute lower GI bleeding Discharge Plan Patient Disposition: ADMITTED INPATIENT Condition: Stable Orders to Discharge Patient Discharge Orders: Transfer (Routine); Ordered 09/23/23 Ordered By: Iván Jordan
[2023-09-23] MEDS ORDERED: NS 1,000 ML IV 1,000 ML ONE (15:43)
[2023-09-23] MEDS: NS 1,000 ML IV 1,000 ML IV ONE (15:54)
[2023-09-23 16:19] LABS: BASOPHILS # (AUTO) 0.1 X10^3/uL (0.0-0.1); EOSINOPHILS # (AUTO) 0.2 x10^3/uL (0.0-0.2); EOSINOPHILS % (AUTO) 2.4 % (0.9-2.9); HEMATOCRIT 45.4 % (42.0-54.0); HEMOGLOBIN 15.5 g/dL (13.5-18.0); LYMPHOCYTES # (AUTO) 2.4 X10^3/uL (1.3-2.9); LYMPHOCYTES % (AUTO) 27.2 % (21.0-51.0); MEAN CORPUSCULAR HEMOGLOBIN 31.2 pg (27.0-34.0); MEAN CORPUSCULAR HGB CONC 34.1 g/dL (33.0-35.0); MEAN CORPUSCULAR VOLUME 91.3 fL (80.0-100.0); MEAN PLATELET VOLUME 7.5 fL (7.4-11.0); MONOCYTES # (AUTO) 0.7 x10^3/uL (0.3-0.8); MONOCYTES % (AUTO) 7.5 % (0.0-13.0); NEUTROPHILS # (AUTO) 5.5 x10^3/uL (2.2-4.8); NEUTROPHILS % (AUTO) 61.9 % (42.0-75.0); PLATELET COUNT 332 X10^3/uL (150.0-450.0); RED BLOOD COUNT 4.97 X10^6/uL (4.7-6.0); RED CELL DISTRIBUTION WIDTH 13.2 % (11.6-16.5); WHITE BLOOD COUNT 8.9 X10^3/uL (3.6-10.0)
[2023-09-23 16:25] LABS: ALANINE AMINOTRANSFERASE 61 Units/L (12-78); ALKALINE PHOSPHATASE 65 Units/L (46-116); ASPARTATE AMINO TRANSFERASE 16 Units/L (15-37); BLOOD UREA NITROGEN 11 mg/dL (7-18); CARBON DIOXIDE 28.1 mmol/L (21-32); CHLORIDE 105 mmol/L (98-107); COR CA(FOR HYPOALB) 8.8 mg/dL (8.5-10.1); COR NA(FOR HYPERGLY) 143 mmol/L (136-145); CREATININE 1.03 mg/dL (0.70-1.30); GLUCOSE 149 mg/dL (65-99); INR 0.98 (0.8-1.3); LIPASE 28 Units/L (16-77); SODIUM 142 mmol/L (136-145); TOTAL PROTEIN 6.2 g/dL (6.4-8.2); eGFR NON BLACK RACES > 60 (>60)
[2023-09-23] MEDS: OMNIPAQUE 350 mg/mL 100 mL BTL 100 ML ONE (18:33)
[2023-09-23] MEDS: NS 100 ML IV 100 ML ONE (18:33)
--- NOTE | 2023-09-23 18:59 | CT ---
EXAM: ABDCMEN/PELVIS WITH CON HISTORY: HAS HAD SOME RECTAL BLEEDING SINCE THURSDAY. ; COMPARISON: March 12, 2023 TECHNIQUE: Axial CT images of the abdomen and pelvis were obtained after the administration of 100 mL Omnipaque 350 IV contrast and reformatted into coronal and sagittal planes for further evaluation. Radiation dose: 307.65 mGy-cm total DLP FINDINGS: Lung bases are clear. Stomach appears normal. Status post cholecystectomy. Tiny right hepatic lobe hemangioma. Diffuse fatty infiltration of the liver. Spleen, pancreas and adrenal glands are unremarkable. Gallbladder appears normal with no biliary dilatation. Homogeneous enhancement of the kidneys without hydronephrosis or hydroureter. Unremarkable appearance of the urinary bladder. Imaged reproductive structures are unremarkable. Colonic diverticulosis without diverticulitis. Otherwise, unremarkable appearance of the small and large bowel. Status post appendectomy. No pneumoperitoneum. No significant fluid collection. No adenopathy. No acute osseous abnormality. IMPRESSION: 1. No acute intra-abdominal abnormality detected. 2. Colonic diverticulosis without diverticulitis. 3. Diffuse fatty infiltration of the liver. Tiny hemangioma in the right hepatic lobe. THIS IS AN ELECTRONICALLY VERIFIED FINAL REPORT 09/23/2023 6:55 PM - Electronically signed by Aldair Wilson MD
[2023-09-23 20:37] VITALS: BMI 29.0
[2023-09-23] MEDS ORDERED: CONSULT PHARMACY - POTASSIUM & MAGNESIUM XX SCH (21:30)
[2023-09-23] MEDS ORDERED: PATIENT'S HOME MEDICATION (Oxycodone-Acetaminophen 7.5-325 mg Tablet) PO PRN (21:30)
[2023-09-24] MEDS: LR 1,000 ML IV 1,000 ML IV SCH (03:16)
[2023-09-24] MEDS: COREG TAB 12.5 MG PO SCH (03:19)
[2023-09-24 04:53] LABS: BASOPHILS # (AUTO) 0.1 X10^3/uL (0.0-0.1); BASOPHILS % (AUTO) 0.5 % (0.2-1.0); EOSINOPHILS # (AUTO) 0.3 x10^3/uL (0.0-0.2); EOSINOPHILS % (AUTO) 2.5 % (0.9-2.9); HEMATOCRIT 45.4 % (42.0-54.0); HEMOGLOBIN 15.6 g/dL (13.5-18.0); LYMPHOCYTES # (AUTO) 1.8 X10^3/uL (1.3-2.9); LYMPHOCYTES % (AUTO) 17.6 % (21.0-51.0); MEAN CORPUSCULAR HEMOGLOBIN 31.2 pg (27.0-34.0); MEAN CORPUSCULAR HGB CONC 34.3 g/dL (33.0-35.0); MEAN CORPUSCULAR VOLUME 90.9 fL (80.0-100.0); MEAN PLATELET VOLUME 7.8 fL (7.4-11.0); MONOCYTES # (AUTO) 0.9 x10^3/uL (0.3-0.8); NEUTROPHILS # (AUTO) 7.1 x10^3/uL (2.2-4.8); NEUTROPHILS % (AUTO) 70.4 % (42.0-75.0); PLATELET COUNT 316 X10^3/uL (150.0-450.0); RED BLOOD COUNT 4.99 X10^6/uL (4.7-6.0); RED CELL DISTRIBUTION WIDTH 13.4 % (11.6-16.5); WHITE BLOOD COUNT 10.1 X10^3/uL (3.6-10.0)
[2023-09-24 05:06] LABS: ALANINE AMINOTRANSFERASE 55 Units/L (12-78); ALKALINE PHOSPHATASE 53 Units/L (46-116); ASPARTATE AMINO TRANSFERASE 20 Units/L (15-37); BLOOD UREA NITROGEN 7 mg/dL (7-18); CALCIUM 8.2 mg/dL (8.5-10.1); CARBON DIOXIDE 28.6 mmol/L (21-32); CHLORIDE 103 mmol/L (98-107); CREATININE 0.92 mg/dL (0.70-1.30); GLUCOSE 109 mg/dL (65-99); POTASSIUM 3.9 mmol/L (3.5-5.1); SODIUM 139 mmol/L (136-145); TOTAL PROTEIN 6.2 g/dL (6.4-8.2); eGFR NON BLACK RACES > 60 (>60)
--- NOTE | 2023-09-24 08:52 | DR.PROGNOT ---
HOSPITAL PROGRESS NOTE Progress Note for Day of: Progress Note Date: 09/24/23 Chief Complaint Chief Complaint: No more rectal bleeding since last night. Still having mild to moderate lower abdominal pain, no nausea or vomiting. Patient is for flexible sigmoidoscopy today. Past Medical Family Social History Allergies: Allergies Penicillins Allergy (Verified 03/24/23 14:59) Sulfa (Sulfonamide Antibiotics) [SULFA] Allergy (Verified 03/24/23 14:59) Review Of Systems ROS: No change since H&P Vital Signs Vital Signs: Vital Signs Temperature 98.9 F Pulse Rate [Right] 67 Respiratory Rate 18 Blood Pressure [Right Arm] 140/92 O2 Sat by Pulse Oximetry 96 Physical Exam Oriented: Normal Eyes: Normal Ear: Normal Nose: Normal Throat: Normal Respiratory: Normal Cardiovascular: Normal GI:Auscultation: Normal GI:Palpation: Normal GI: Tenderness: Other (Soft and flat abdomen with both mild left and right lower quadrant tenderness) Speech Pattern: Clear and Appropriate Laboratory and Diagnostics 09/24/23 04:26 09/24/23 04:26 Labs: Laboratory WBC 10.1 X10^3/uL (3.6-10.0) H 09/24/23 04:26 RBC 4.99 X10^6/uL (4.7-6.0) 09/24/23 04:26 Hgb 15.6 g/dL (13.5-18.0) 09/24/23 04:26 Hct 45.4 % (42.0-54.0) 09/24/23 04:26 MCV 90.9 fL (80.0-100.0) 09/24/23 04:26 MCH 31.2 pg (27.0-34.0) 09/24/23 04:26 MCHC 34.3 g/dL (33.0-35.0) 09/24/23 04:26 RDW 13.4 % (11.6-16.5) 09/24/23 04:26 Plt Count 316 X10^3/uL (150.0-450.0) 09/24/23 04:26 MPV 7.8 fL (7.4-11.0) 09/24/23 04:26 Neut % (Auto) 70.4 % (42.0-75.0) 09/24/23 04:26 Lymph % (Auto) 17.6 % (21.0-51.0) L 09/24/23 04:26 [place] % (Auto) 9.0 % (0.0-13.0) 09/24/23 04:26 Eos % (Auto) 2.5 % (0.9-2.9) 09/24/23 04:26 Baso % (Auto) 0.5 % (0.2-1.0) 09/24/23 04:26 Neut # (Auto) 7.1 x10^3/uL (2.2-4.8) H 09/24/23 04:26 Lymph # (Auto) 1.8 X10^3/uL (1.3-2.9) 09/24/23 04:26 [place] # (Auto) 0.9 x10^3/uL (0.3-0.8) H 09/24/23 04:26 Eos # (Auto) 0.3 x10^3/uL (0.0-0.2) H 09/24/23 04:26 Baso # (Auto) 0.1 X10^3/uL (0.0-0.1) 09/24/23 04:26 Absolute Nucleated RBC 0.0 /100WBC 09/24/23 04:26 PT 12.8 SECONDS (11.8-14.3) 09/23/23 16:04 INR Target Range - 09/23/23 16:04 INR 0.98 (0.8-1.3) 09/23/23 16:04 APTT 27.3 SECONDS (22.9-36.5) 09/23/23 16:04 PTT Comment - 09/23/23 16:04 Sodium 139 mmol/L (136-145) 09/24/23 04:26 Corrected Sodium TNP 09/24/23 04:26 Potassium 3.9 mmol/L (3.5-5.1) 09/24/23 04:26 Chloride 103 mmol/L (98-107) 09/24/23 04:26 Carbon Dioxide 28.6 mmol/L (21-32) 09/24/23 04:26 BUN 7 mg/dL (7-18) 09/24/23 04:26 Creatinine 0.92 mg/dL (0.70-1.30) 09/24/23 04:26 Est GFR (MDRD) Af Amer > 60 (>60) 09/24/23 04:26 Est GFR (MDRD) Non-Af > 60 (>60) 09/24/23 04:26 Glucose 109 mg/dL (65-99) H 09/24/23 04:26 POC Glucose (mg/dL) 112 mg/dL (65-99) H 09/24/23 04:55 Calcium 8.2 mg/dL (8.5-10.1) L 09/24/23 04:26 Corrected Calcium 9.0 mg/dL (8.5-10.1) 09/24/23 04:26 Total Bilirubin 0.60 mg/dL (0.2-1.0) 09/24/23 04:26 AST 20 Units/L (15-37) 09/24/23 04:26 ALT 55 Units/L (12-78) 09/24/23 04:26 Alkaline Phosphatase 53 Units/L (46-116) 09/24/23 04:26 Total Protein 6.2 g/dL (6.4-8.2) L 09/24/23 04:26 Albumin 3.0 g/dL (3.4-5.0) L 09/24/23 04:26 Globulin 3.2 g/dL (2.5-4.5) 09/24/23 04:26 Albumin/Globulin Ratio 0.9 Ratio (1.1-2.1) L 09/24/23 04:26 Lipase 28 Units/L (16-77) 09/23/23 16:04 Assessment and Plan 1: Rectal bleeding. For sigmoidoscopy today. 2: Recurrent diverticulitis. As above patient is for sigmoidoscopy today. Problem Patient Problems: Patient Problems Acute lower GI bleeding (Acute) K92.2
[2023-09-24] MEDS ORDERED: PATIENT'S HOME MEDICATION (Losartan 100 mg Tablet) PO SCH (09:00)
[2023-09-24] MEDS: LIPITOR TAB 80 MG PO SCH (09:04)
[2023-09-24] MEDS: COZAAR PO SCH (09:04)
[2023-09-24] MEDS: NORVASC TAB 10 MG PO SCH (09:04)
[2023-09-24] MEDS ORDERED: PERCOCET TAB 5/325 MG PO PRN (12:54)
[2023-09-24] MEDS: DIPRIVAN VIAL 20 ML ONE (13:56)
[2023-09-24 14:40] VITALS: RESP 20
[2023-09-24 15:55] VITALS: BP 152/88; PULSE 70; TEMP 97.5; O2SAT 98
== END 2023-09-24 15:56 | disposition home or self-care (01) ==
LOC: ER 15:13 → MED/SURG 15:13
PROVIDERS: ADMIT Obstetrics & Gynecology Obstetrics; ATTEND Obstetrics & Gynecology Obstetrics
DX: K62.5 Hemorrhage of anus and rectum; I25.2 Old myocardial infarction; I25.10 Atherosclerotic heart disease of native coronary artery without angina pectoris; K64.2 Third degree hemorrhoids; Z87.19 Personal history of other diseases of the digestive system; K57.30 Diverticulosis of large intestine without perforation or abscess without bleeding; K76.0 Fatty (change of) liver, not elsewhere classified; I10 Essential (primary) hypertension